=== PATIENT | female | born 1995 | race Caucasian/White ===

== ENCOUNTER 2016-08-02 16:33 | Outpatient (CLI) | payer OTHER | END 2016-08-02 16:34 | disposition critical access hospital (66) | DX: M54.2 Cervicalgia (principal); M25.572 Pain in left ankle and joints of left foot; V43.63XA Car passenger injured in collision with pick-up truck in traffic accident, initial encounter; Y92.414 Local residential or business street as the place of occurrence of the external cause | CPT/HCPCS: A0425; A0429 ==

== ENCOUNTER 2016-08-02 16:41 | Emergency (ER) | payer OTHER ==
[2016-08-02] MEDS ORDERED: HYDROcod/ACETAM 5/325 MG TABLET PO STA (18:03)
== END 2016-08-02 18:27 | disposition home or self-care (01) ==
DX: S82.832A Other fracture of upper and lower end of left fibula, initial encounter for closed fracture (principal); M54.6 Pain in thoracic spine; V49.50XA Passenger injured in collision with unspecified motor vehicles in traffic accident, initial encounter; R03.0 Elevated blood-pressure reading, without diagnosis of hypertension

== ENCOUNTER 2016-11-27 14:47 | Outpatient (CLI) | payer OTHER ==
[2016-11-27 15:45] LABS: ALBUMIN/GLOBULIN RATIO 1.3 (1.0-2.2); BILIRUBIN,TOTAL 0.3 mg/dL (0.2-1.0); CALCIUM 9.1 mg/dL (8.5-10.3); CREATININE 0.7 mg/dL (0.4-1.0); POTASSIUM 3.7 mmol/L (3.5-5.0); TOTAL PROTEIN 7.3 g/dL (6.7-8.2)
[2016-11-27 15:49] LABS: BASOPHILS % (AUTO) 0.6 %; EOSINOPHILS # (AUTO) 0.4 10^3/uL (0.0-0.7); EOSINOPHILS % (AUTO) 5.2 %; HCT - HEMATOCRIT 39.2 % (37.0-47.0); HGB - HEMOGLOBIN 12.9 g/dL (12.0-16.0); LYMPHOCYTES # (AUTO) 2.2 10^3/uL (1.5-3.5); LYMPHOCYTES % (AUTO) 28.6 %; MEAN CORPUSCULAR HEMOGLOBIN 30.1 pg (27.0-31.0); MEAN CORPUSCULAR VOLUME 91.2 fL (81.0-99.0); MEAN PLATELET VOLUME 10.6 fL (7.9-10.8); MONOCYTES # (AUTO) 0.5 10^3/uL (0.0-1.0); MONOCYTES % (AUTO) 6.5 %; NEUTROPHILS # (AUTO) 4.5 10^3/uL (1.5-6.6); NEUTROPHILS % (AUTO) 59.1 %; RED BLOOD COUNT 4.29 10^6/uL (4.20-5.40); RED CELL DISTRIBUTION WIDTH 13.9 % (12.0-15.0); UNCORRECTED WHITE BLOOD COUNT 7.5 x10^3/uL; WHITE BLOOD COUNT 7.5 x10^3/uL (4.8-10.8)
== END 2016-11-27 14:48 | disposition home or self-care (01) ==
LOC: LAB 14:47
PROVIDERS: ATTEND Physician Assistant Medical
DX: R10.13 Epigastric pain (principal); R11.0 Nausea
CPT/HCPCS: 36415; 80053; 83690; 84443; 85025

== ENCOUNTER 2017-06-12 17:12 | Emergency (ER) | payer SELFPAY ==
--- NOTE | 2017-06-12 17:52 | ED Physician Documentation ---
PD HPI HEENT - Stated complaint Stated Complaint: EAR/THROAT PX - Chief complaint Chief Complaint: Heent - History obtained from History obtained from: Patient - History of Present Illness Timing - onset: Yesterday Timing - duration: Days (1) Timing - details: Gradual onset, Still present Location: Left ear, Throat Improves: Medication Worsens: Swalllowing Associated symptoms: Fever, Congestion, Rhinorrhea, Headache Similar symptoms before: Has not had sx before Recently seen: Not recently seen - Additional information Additional information: 22-year-old female with a 2 day history of congestion and sore throat has significant ear pain today. She has not had much in way of a cough she has not had vomiting. Review of Systems Constitutional: reports: Fever Eyes: denies: Decreased vision Ears: reports: Ear pain Nose: reports: Rhinorrhea / runny nose, Congestion Throat: reports: Sore throat Cardiac: denies: Chest pain / pressure, Palpitations Respiratory: denies: Dyspnea, Cough GI: denies: Nausea, Vomiting PD PAST MEDICAL HISTORY - Past Surgical History Past Surgical History: No - Present Medications Home Medications: Ambulatory Orders Medication Instructions Recorded Confirmed Amox/Clav 875/125 [Augmentin] 1 each PO Q12H #20 tablet 06/12/17 - Allergies Allergies/Adverse Reactions: Allergies Allergy/AdvReac Type Severity Reaction Status Date / Time No Known Drug Allergies Allergy Verified 08/02/16 16:46 - Social History Does the pt smoke?: Yes Smoking Status: Current every day smoker Does the pt drink ETOH?: No Does the pt have substance abuse?: No - Immunizations Immunizations are current?: Yes PD ED PE NORMAL - Vitals Vital signs reviewed: Yes (tachy and hypertensive ) - General General: Well developed/nourished, Other (The patient is clutching her left ear and crying. She appears to be in pain ) - HEENT HEENT: Atraumatic, PERRL, EOMI, Other (both TM's are markedly inflameda and the left is worse than the right. ) - Neck Neck: Supple, no meningeal sign, No bony TTP, Other (shoddy adenopathy bilaterally ) - Cardiac Cardiac: RRR, No murmur - Respiratory Respiratory: No respiratory distress, Clear bilaterally - Abdomen Abdomen: Soft, Non tender - Back Back: No CVA TTP, No spinal TTP - Derm Derm: Normal color, Warm and dry, No rash - Extremities Extremities: No deformity, No edema - Neuro Neuro: No motor deficit, No sensory deficit Eye Opening: Spontaneous Motor: Obeys Commands Verbal: Oriented GCS Score: 15 - Psych Psych: Normal mood, Normal affect Results - Vitals Vitals: Vital Signs - 24 hr 06/12/17 17:30 Temperature 37.0 C Heart Rate 104 H Respiratory 18 Rate Blood Pressure 134/101 H O2 Saturation 97 Oxygen O2 Source Room air - Labs Labs: Laboratory Tests 06/12/17 17:44 Group A Strep Rapid Negative PD MEDICAL DECISION MAKING - ED course Complexity details: reviewed results, re-evaluated patient, considered differential, d/w patient, d/w family ED course: 22-year-old female with a sore throat and ear pain has marked inflammation of the TMs bilaterally she has exudative cryptic tonsils and she is administered dexamethasone and a single dose of hydrocodone. Her rapid strep is negative and she is started on augmentin. Departure - Departure Disposition: Home, Self Care Clinical Impression: Tonsillopharyngitis Otitis media Qualifiers: Otitis media type: suppurative Chronicity: acute Laterality: bilateral Recurrence: not specified as recurrent Spontaneous tympanic membrane rupture: without spontaneous rupture Qualified Code(s): H66.003 - Acute suppurative otitis media without spontaneous rupture of ear drum, bilateral Condition: Stable Instructions: ED Otitis Media Acute Adult, ED Tonsillitis Follow-Up: [facility] [Provider Group] Prescriptions: Amox/Clav 875/125 [Augmentin] 1 each PO Q12H #20 tablet
[2017-06-12] MEDS ORDERED: DEXAMETHASONE 10 MG/ML VIAL PO STA (17:58)
[2017-06-12] MEDS ORDERED: HYDROcod/ACETAM 5/325 MG TABLET PO STA (17:58)
[2017-06-12] MEDS ORDERED: CHERRY SYRUP 10 ML UDC PO ONE (18:13)
[2017-06-12 18:30] VITALS: BP 133/89
== END 2017-06-12 18:28 | disposition home or self-care (01) ==
LOC: ED 17:12
DX: J02.9 Acute pharyngitis, unspecified (principal); H66.003 Acute suppurative otitis media without spontaneous rupture of ear drum, bilateral; F17.200 Nicotine dependence, unspecified, uncomplicated
CPT/HCPCS: 87070; 87430; 99283; A9270

== ENCOUNTER 2017-11-03 08:12 | Emergency (ER) | payer MEDICAID ==
[2017-11-03 08:17] VITALS: BP 113/92
--- NOTE | 2017-11-03 08:26 | ED Physician Documentation ---
PD HPI HEENT - Stated complaint Stated Complaint: SORE THROAT - Chief complaint Chief Complaint: Heent - History obtained from History obtained from: Patient - History of Present Illness Timing - onset: Yesterday Timing - duration: Days (1) Timing - details: Gradual onset, Still present Location: Throat Improves: Medication Worsens: Swalllowing Associated symptoms: Congestion, Rhinorrhea, Swollen nodes, Headache. No: Cough Similar symptoms before: Diagnosis (tonsillopharyngitis) Recently seen: Not recently seen - Additional information Additional information: 22-year-old previously well female has developed a sore throat yesterday and this is worse today. She has not had a fever she has not had a cough. She has had this happen to her previously. She denies any pain in her ears today. She states that she got adequate relief with the treatment provided on her prior visit 6 months ago. Review of Systems Constitutional: denies: Fever Eyes: denies: Decreased vision Ears: denies: Ear pain Nose: reports: Rhinorrhea / runny nose, Congestion Throat: reports: Sore throat Cardiac: denies: Chest pain / pressure, Palpitations Respiratory: denies: Dyspnea, Cough GI: denies: Nausea, Vomiting : denies: Dysuria, Frequency PD PAST MEDICAL HISTORY - Past Medical History Past Medical History: No - Past Surgical History Past Surgical History: No - Present Medications Home Medications: Ambulatory Orders Medication Instructions Recorded Confirmed Amox/Clav 875/125 [Augmentin] 1 each PO Q12H #20 tablet 06/12/17 Amox/Clav 875/125 [Augmentin] 1 each PO Q12H #20 tablet 11/03/17 - Allergies Allergies/Adverse Reactions: Allergies Allergy/AdvReac Type Severity Reaction Status Date / Time No Known Drug Allergies Allergy Verified 08/02/16 16:46 - Social History Does the pt smoke?: Yes Smoking Status: Current every day smoker Does the pt drink ETOH?: No Does the pt have substance abuse?: No - Immunizations Immunizations are current?: Yes PD ED PE NORMAL - Vitals Vital signs reviewed: Yes - General General: Alert and oriented X 3, Well developed/nourished, Other (22 y/o female with tears in her eyes) - HEENT HEENT: Atraumatic, PERRL, EOMI, Other (The right TM is flush and the left is clear. The pharynx is with 2+ tonsils with crypts and exudate especially on the right. ) - Neck Neck: Supple, no meningeal sign, No bony TTP, Other (tender submandibular adenopathy) - Cardiac Cardiac: RRR, No murmur - Respiratory Respiratory: No respiratory distress, Clear bilaterally - Abdomen Abdomen: Soft, Non tender - Back Back: No CVA TTP, No spinal TTP - Derm Derm: Normal color, Warm and dry, No rash - Extremities Extremities: No deformity, No edema - Neuro Neuro: No motor deficit, No sensory deficit Eye Opening: Spontaneous Motor: Obeys Commands Verbal: Oriented GCS Score: 15 - Psych Psych: Normal mood, Normal affect Results - Vitals Vitals: Vital Signs - 24 hr 11/03/17 08:15 Temperature 37.0 C Heart Rate 93 Respiratory 16 Rate Blood Pressure 113/92 H O2 Saturation 97 Oxygen O2 Source Room air - Labs Labs: Laboratory Tests 11/03/17 08:20 Group A Strep Rapid Negative PD MEDICAL DECISION MAKING - ED course Complexity details: considered differential, d/w patient ED course: 22-year-old female with tonsillopharyngitis and otitis again is administered dexamethasone 10 mg orally here in the emergency department and will place her on some Augmentin. - Sepsis Event Vital Signs: Vital Signs - 24 hr 11/03/17 08:15 Temperature 37.0 C Heart Rate 93 Respiratory 16 Rate Blood Pressure 113/92 H O2 Saturation 97 Oxygen O2 Source Room air Departure - Departure Disposition: 01 Home, Self Care Clinical Impression: Tonsillopharyngitis Otitis media Qualifiers: Otitis media type: suppurative Chronicity: acute Laterality: right Recurrence: not specified as recurrent Spontaneous tympanic membrane rupture: without spontaneous rupture Qualified Code(s): H66.001 - Acute suppurative otitis media without spontaneous rupture of ear drum, right ear Condition: Stable Instructions: ED Otitis Media Acute Adult, ED Tonsillitis Follow-Up: [facility] [Provider Group] Prescriptions: Amox/Clav 875/125 [Augmentin] 1 each PO Q12H #20 tablet Forms: Activity restrictions Discharge Date/Time: 11/03/17 08:46
[2017-11-03] MEDS ORDERED: DEXAMETHASONE 10 MG/ML VIAL PO STA (08:34)
[2017-11-03] MEDS ORDERED: CHERRY SYRUP 10 ML UDC PO ONE (08:51)
== END 2017-11-03 08:46 | disposition home or self-care (01) ==
LOC: ED 08:12
DX: J03.90 Acute tonsillitis, unspecified (principal); H66.001 Acute suppurative otitis media without spontaneous rupture of ear drum, right ear; F17.200 Nicotine dependence, unspecified, uncomplicated
CPT/HCPCS: 87070; 87430; 99283; A9270

== ENCOUNTER 2017-11-19 15:07 | Emergency (ER) | payer MEDICAID ==
[2017-11-19 15:27] VITALS: BP 132/67
[2017-11-19] MEDS ORDERED: DEXAMETHASONE 10 MG/ML VIAL PO STA (16:29)
--- NOTE | 2017-11-19 16:31 | ED Physician Documentation ---
History of Present Illness - Stated complaint Stated Complaint: THROAT PX - Chief complaint Chief Complaint: Heent - History obtained from History obtained from: Patient - History of Present Illness Timing: How many days ago Pain level max: 8 Pain level now: 7 Improved by: rest Worsened by: swallowing - Additonal information Additional information: Patient is a 22-year-old female with a sore throat for the past 3 days. Denies any coughing, nasal congestion or rhinorrhea. States that she does have occasional chills and subjective fevers. Denies any possibility of . Is not currently taking any medications. Review of Systems Ten Systems: 10 systems reviewed and negative Constitutional: reports: Chills Ears: denies: Ear pain Nose: denies: Rhinorrhea / runny nose, Congestion Throat: reports: Sore throat Respiratory: denies: Cough GI: denies: Abdominal Pain, Vomiting, Diarrhea : denies: Dysuria, Frequency, Hesitancy, Now EGA Skin: denies: Rash Musculoskeletal: denies: Neck pain, Back pain Neurologic: denies: Headache PD PAST MEDICAL HISTORY - Past Surgical History Past Surgical History: No - Present Medications Home Medications: Ambulatory Orders Medication Instructions Recorded Confirmed Ibuprofen [Motrin] 800 mg PO Q8H PRN #30 tablet 11/19/17 Penicillin V Potassium 500 mg PO Q6HR #40 tablet 11/19/17 - Allergies Allergies/Adverse Reactions: Allergies Allergy/AdvReac Type Severity Reaction Status Date / Time No Known Drug Allergies Allergy Verified 11/19/17 15:27 - Social History Does the pt smoke?: Yes Smoking Status: Current every day smoker Does the pt drink ETOH?: No Does the pt have substance abuse?: No - Immunizations Immunizations are current?: Yes PD ED PE NORMAL - Vitals Vital signs reviewed: Yes - General General: Alert and oriented X 3, No acute distress, Well developed/nourished - HEENT HEENT: PERRL, Ears normal, Moist mucous membranes, Other (Moderate erythema to the posterior oropharynx. Uvula midline. Normal phonation. No trismus. Tonsillar exudates present bilaterally.) - Neck Neck: Supple, no meningeal sign, Other (Shotty anterior cervical lymphadenopathy ) - Cardiac Cardiac: RRR, Strong equal pulses - Respiratory Respiratory: No respiratory distress, Clear bilaterally - Abdomen Abdomen: Soft, Non tender, Non distended - Derm Derm: Warm and dry, No rash - Neuro Neuro: Alert and oriented X 3 - Psych Psych: Normal mood, Normal affect Results - Vitals Vitals: Oxygen O2 Source Room air - Labs Labs: Microbiology 11/19/17 16:19 Group A Strep Throat Culture - Final Throat Beta Hemolytic Strep Group C Laboratory Tests 11/19/17 16:19 Group A Strep Rapid Negative PD MEDICAL DECISION MAKING - ED course Complexity details: reviewed results, considered differential, d/w patient ED course: Patient is a 22-year-old female who appears to have streptococcal pharyngitis on clinical exam. Rapid strep is negative, but given the poor sensitivity of this test, will treat her with antibiotics pending the culture results. Given dexamethasone as well. Tolerating p.o. without difficulty. No evidence of peritonsillar or retropharyngeal abscess. Patient counseled regarding signs and symptoms for which I believe and urgent re-evaluation would be necessary. Patient with good understanding of and agreement to plan and is comfortable going home at this time This document was made in part using voice recognition software. While efforts are made to proofread this document, sound alike and grammatical errors may occur. - Sepsis Event Vital Signs: Oxygen O2 Source Room air Departure - Departure Disposition: 01 Home, Self Care Clinical Impression: Pharyngitis Qualifiers: Pharyngitis/tonsillitis etiology: unspecified etiology Qualified Code(s): J02.9 - Acute pharyngitis, unspecified Condition: Good Instructions: ED Strep Pharyngitis Poss Follow-Up: your,doctor in 1 week if not better [Other] Prescriptions: Penicillin V Potassium 500 mg PO Q6HR #40 tablet Ibuprofen [Motrin] 800 mg PO Q8H PRN #30 tablet PRN Reason: PAIN &/OR FEVER Comments: Drink plenty of fluids. Return if you worsen. You can also use popsicles to help with the swelling and pain. Take all antibiotics until gone Discharge Date/Time: 11/19/17 16:39
[2017-11-19] MEDS ORDERED: CHERRY SYRUP 10 ML UDC PO ONE (16:46)
== END 2017-11-19 16:39 | disposition home or self-care (01) ==
LOC: ED 15:07
DX: J02.9 Acute pharyngitis, unspecified (principal); F17.200 Nicotine dependence, unspecified, uncomplicated
CPT/HCPCS: 87070; 87430; 99283; A9270